=== PATIENT | male | born 1950 | race Caucasian/White ===

== ENCOUNTER → 2018-09-25 | Outpatient (CLI) | payer MEDICARE ==
--- NOTE | 2018-09-25 15:10 | RAD ---
EXAM: Left renal sonogram. HISTORY: Hernia. TECHNIQUE: Sonographic imaging of the left inguinal canal was performed. COMPARISON: None. FINDINGS: There is a small fat-containing left inguinal hernia. The hernia defect increases with a Valsalva maneuver and measures 7 mm in maximum dimension. No herniated bowel is seen. IMPRESSION: Small fat-containing left internal hernia. Electronically signed by: Nay Wilson MD (09/25/2018 3:07 PM) [email or web address]
== END | disposition home or self-care (01) ==
LOC: US 08:50
PROVIDERS: ATTEND Registered Nurse
DX: K40.90 Unilateral inguinal hernia, without obstruction or gangrene, not specified as recurrent (principal)
CPT/HCPCS: 76882